=== PATIENT | male | born 1960 | race Caucasian/White ===

== ENCOUNTER 2017-11-14 19:57 | Emergency (ER) | payer OTHER, SELFPAY ==
[~2017-11-14] VITALS: Ht 172.7 cm; Wt 68.2 kg
[2017-11-14 22:26] VITALS: BP 135/75
== END 2017-11-14 23:00 | disposition left against medical advice (07) ==
LOC: EMS 19:58
DX: Z53.21 Procedure and treatment not carried out due to patient leaving prior to being seen by health care provider (principal)